=== PATIENT | female | born 1995 | race African-American/Black ===

== ENCOUNTER 2022-06-19 15:57 | Emergency (ER) | payer MEDICAID ==
[~2022-06-19] VITALS: Ht 167.6 cm; Wt 71.0 kg
[2022-06-19 15:59] VITALS: BP 136/70
[2022-06-19] MEDS ORDERED: METHOCARBAMOL 750MG TABLET PO SCH (17:00)
[2022-06-19] MEDS ORDERED: LIDOCAINE 5% PATCH TOP SCH (17:00)
[2022-06-19] MEDS ORDERED: ACETAMINOPHEN 325MG TABLET PO ONE (17:00)
[2022-06-19] MEDS ORDERED: IBUPROFEN 400MG TABLET PO ONE (17:00)
[2022-06-19] MEDS ORDERED: LIDO1ADH23 TP (18:31)
[2022-06-19] MEDS ORDERED: IBUP-2028 MT (18:31)
[2022-06-19] MEDS ORDERED: METH-653 MT (18:31)
== END 2022-06-19 18:39 | disposition home or self-care (01) ==
LOC: ER 16:13
DX: M54.2 Cervicalgia (principal); M25.522 Pain in left elbow; M25.512 Pain in left shoulder; M79.18 Myalgia, other site; G89.11 Acute pain due to trauma; R03.0 Elevated blood-pressure reading, without diagnosis of hypertension; V89.2XXA Person injured in unspecified motor-vehicle accident, traffic, initial encounter; Y93.89 Activity, other specified; Y92.488 Other paved roadways as the place of occurrence of the external cause
CPT/HCPCS: 71045; 72040; 73080; 81025; 99284